=== PATIENT | female | born 1965 | race Caucasian/White ===

== ENCOUNTER 2018-01-10 16:17 | Emergency (ER) | payer MEDICARE, BC ==
[~2018-01-10] VITALS: Ht 157.5 cm; Wt 100.0 kg
[2018-01-10 16:20] VITALS: TEMP 98.9
[2018-01-10 17:16] LABS: BASO # 0.1 (0.0-0.2); BASO % 0.9 % (0.0-2.0); EOS # 0.1 (0.0-0.7); EOS % 1.7 % (0-4.0); GRAN # 4.5 (1.4-6.5); GRAN % 57.9 % (42.2-75.2); HEMATOCRIT 29.4 % (37.0-47.0); HEMOGLOBIN 9.6 g/dl (12.5-16.0); LYMPH # 2.4 (1.2-3.4); LYMPH % 30.4 % (20.0-51.0); MEAN CELL VOLUME 91 fl (80.0-100.0); MEAN CORPUSCULAR HEMOGLOBIN 30 pg (27.0-31.0); MEAN CORPUSCULAR HGB CONC 33 g/dl (33.0-37.0); MEAN PLATELET VOLUME 8.6 fl (7.4-10.4); MONO # 0.7 (0.1-0.6); MONO % 8.7 % (1.7-9.3); PLATELET COUNT 384 K/mm3 (130-400); RED BLOOD COUNT 3.25 M/mm3 (4.10-5.30); REDCELL DISTRIBUTION WIDTH-CV 13.9 % (11.5-14.5)
[2018-01-10 17:29] LABS: ALBUMIN 3.6 gm/dL (3.5-5.0); BILIRUBIN,TOTAL 0.6 mg/dL (0.0-1.0); CREATININE, serum 1.83 mg/dL (0.52-1.25); POTASSIUM 4.4 mmol/L (3.4-5.0); TOTAL PROTEIN 7.6 gm/dL (6.4-8.2)
[2018-01-10] MEDS ORDERED: DOXYCYCLINE 10100 MG PO (18:09)
[2018-01-10 18:14] LABS: TROPONIN-I < 0.012 ng/mL (0.000-0.034)
[2018-01-10 18:16] LABS: PROLACTIN 13.9 ng/mL (3.0-18.6)
[2018-01-10 18:58] LABS: COLLECTION METHOD CLEAN CATCH
[2018-01-10 19:11] LABS: MUCOUS Present /lpf; PH 5 (5-8); URINE APPEARANCE Hazy; URINE BACTERIA None Seen /hpf; URINE BILIRUBIN Negative (NEGATIVE); URINE BLOOD Negative (NEGATIVE); URINE GLUCOSE Negative (NEGATIVE); URINE KETONE 1+ (NEGATIVE); URINE LEUKOCYTE ESTERASE Negative (NEGATIVE); URINE NITRATE Negative (NEGATIVE); URINE PROTEIN(semi-quant) Negative (NEGATIVE); URINE RBC 0-2 /hpf; URINE UROBILINOGEN Negative (NEGATIVE)
[2018-01-10 19:12] LABS: URINE COLOR Yellow
[2018-01-10] MEDS ORDERED: TYLENOL 325MG325 MG PO (19:39)
[2018-01-10] MEDS ORDERED: LEXAPRO20 MG PO (19:40)
[2018-01-10] MEDS ORDERED: ASPIRIN 81M81 MG/TA2 PO (19:40)
[2018-01-10] MEDS ORDERED: LIPITOR 10MG10 MG PO (19:40)
[2018-01-10] MEDS ORDERED: COLACE 100100 MG/CAP PO (19:40)
[2018-01-10] MEDS ORDERED: VIMPAT150 MG PO (19:41)
[2018-01-10] MEDS ORDERED: KEPPRA 500MG500 MG PO (19:42)
[2018-01-10] MEDS ORDERED: SYNTHROID 0.10.15 MG PO (19:43)
[2018-01-10] MEDS ORDERED: THEREMS1 TAB PO (19:43)
[2018-01-10] MEDS ORDERED: REMERON30 MG PO (19:43)
[2018-01-10] MEDS ORDERED: PROTONIX 40MG T40 MG PO (19:43)
[2018-01-10] MEDS ORDERED: NAPROSYN500 MG PO (19:43)
[2018-01-10] MEDS ORDERED: TOPAMAX 100MG100 M1 PO (19:44)
[2018-01-10] MEDS ORDERED: TOPAMAX50 MG PO (20:25)
[2018-01-10] MEDS ORDERED: GEODON60 MG PO (20:25)
[2018-01-10] MEDS ORDERED: AMBIEN 5MG TABLE5 MG PO (20:25)
[2018-01-10 21:45] VITALS: BP 115/64; PULSE 66
== END 2018-01-10 22:10 | disposition short-term general hospital (02) ==
LOC: COL.ER 16:17 → MEDICAL 18:55 → COL.ER 18:55
PROVIDERS: Emergency Medicine
DX: E87.6 Hypokalemia (principal); R47.01 Aphasia; R53.1 Weakness; N18.9 Chronic kidney disease, unspecified; Z79.82 Long term (current) use of aspirin
CPT/HCPCS: J0610; J2060; J7030